=== PATIENT | male | born 1945 | race Native Hawaiian/Other Pacific Islander ===

== ENCOUNTER 2018-09-17 16:04 | Emergency (ER) | payer OTHER ==
[~2018-09-17] VITALS: Ht 175.3 cm; Wt 88.5 kg
[2018-09-17 16:56] VITALS: BP 136/57; TEMP 97.7
== END 2018-09-17 17:17 | disposition home or self-care (01) ==
LOC: ED 16:04
DX: M25.571 Pain in right ankle and joints of right foot (principal); S93.491A Sprain of other ligament of right ankle, initial encounter; W17.2XXA Fall into hole, initial encounter; Y92.89 Other specified places as the place of occurrence of the external cause
CPT/HCPCS: 99282

== ENCOUNTER 2018-10-09 15:25 | Emergency (ER) | payer OTHER ==
[~2018-10-09] VITALS: Ht 175.3 cm; Wt 88.5 kg
[2018-10-09] MEDS ORDERED: DOXAZOSIN4 M1 PO (15:39)
[2018-10-09] MEDS ORDERED: NEXIUM20 MG PO (15:39)
[2018-10-09] MEDS ORDERED: MAGNESIUM1 TAB PO (15:40)
[2018-10-09] MEDS ORDERED: VIT E COMPLX400 UNIT PO (15:40)
[2018-10-09] MEDS ORDERED: VIT B12/FA PO (15:40)
[2018-10-09] MEDS ORDERED: ESTER-C500 M2 PO (15:41)
[2018-10-09] MEDS ORDERED: POTASSIMIN75 MG PO (15:41)
[2018-10-09 15:58] LABS: PLATELET COUNT 217 K/uL (142-355)
[2018-10-09 16:07] LABS: SODIUM 140 mmol/L (136-145)
[2018-10-09 17:36] VITALS: BP 142/83; TEMP 97.7
== END 2018-10-09 17:54 | disposition home or self-care (01) ==
LOC: ED 15:25
PROVIDERS: Internal Medicine
DX: I48.91 Unspecified atrial fibrillation (principal)
CPT/HCPCS: 36415; 80053; 82550; 84484; 85027; 85379; 93005; 96374; 96376; 99284; J3490

== ENCOUNTER 2020-10-11 10:52 | Outpatient (CLI) | payer OTHER ==
[~2020-10-11 10:52] MED LIST: DOXAZOSIN4 M1 PO; ESTER-C500 M2 PO; MAGNESIUM1 TAB PO; NEXIUM20 MG PO; POTASSIMIN75 MG PO; VIT B12/FA PO; VIT E COMPLX400 UNIT PO
== END 2020-10-11 18:58 | disposition home or self-care (01) ==
LOC: RAD 10:52
PROVIDERS: ATTEND Nurse Practitioner Family
DX: R70.0 Elevated erythrocyte sedimentation rate (principal)